=== PATIENT | male | born 1955 | race Caucasian/White ===

== ENCOUNTER 2017-10-23 19:00 | Inpatient (IN) | payer BC ==
[~2017-10-23] VITALS: Ht 180.3 cm; Wt 93.0 kg
--- NOTE | ~2017-10-23 | EKG ---
[place] [address] [facility] [email or web address] [address] ELECTROCARDIOGRAM REPORT Name: KEITH KENYON Room #: 422-P ADM IN M.R.#: [id number] Admission: 10/23/17 Attend Phys: Isaac Anaya MD Discharge: Date of : 55 Report #: [id number] THIS REPORT FOR: //name// [facility] ED Test Date: 2017-10-23 Test Time: 19:09:40 Pat Name: KEITH KENYON Department: Room: Gender: M Dance Entertainer: CATHERINEPETRA : 1955 Requested By: Carlitos Shah Order Number: [id number] MD: Mingo Tena Measurements Intervals [place] Rate: 73 P: 43 NM: 216 QRS: 25 QRSD: 88 T: -2 QT: 427 QTc: 471 Interpretive Statements Sinus rhythm Borderline prolonged NM interval Borderline T abnormalities, inferior leads Compared to ECG 01/22/2015 20:00:47 T-wave abnormality now present Electronically Signed On 10-24-2017 8:06:16 CDT by Mingo Tena [email or web address] <ELECTRONICALLY SIGNED> By: Mingo Tena MD, [facility] 10/24/17 0806 [id number] Mingo Tena MD, [facility] /EPI
--- NOTE | ~2017-10-23 | 2DMMODE ---
[facility] [address] [place] [address] 2 D/M-MODE ECHOCARDIOGRAM Name: KEITH KENYON Room #: 422-P ADM IN M.R.#: [id number] Admission: 10/23/17 Attend Phys: Isaac Anaya MD Discharge: Date of : 55 Date of Service: 10/24/17 1005 Report #: [id number] THIS REPORT FOR: //name// APPROVED REPORT Study performed: 10/24/2017 08:53:56 EXAM: Comprehensive 2D, Doppler, and color-flow Echocardiogram Patient Location: Echo lab Room #: 422 Status: routine BSA: 2.13 HR: 60 bpm BP: 138/68 mmHg Rhythm: NSR Other Information Study Quality: Good Indications CVA/TIA Hx: recent Afib, pacemaker, HTN. Echo Enhancing Agent Indication: Rule out Shunt Agent(s) / Amount(s) Used: Agitated Saline 6 cc 2D Dimensions RVDd: 46.59 mm LVEF(%): 63.29 (>50%) IVSd: 11.00 (7-11mm) LVOT Diam: 23.46 (18-24mm) LVDd: 40.98 mm PWd: 10.00 (7-11mm) Ascending Ao: 34.94 (22-36mm) LVDs: 27.08 (25-40mm) Aortic Root: 37.94 mm Starr's LVEF: 63.29 % Volumes Left Atrial Volume (Systole) Single Plane 4CH: 47.26 mL Single Plane 2CH: 65.29 mL LA ESV Index: 28.00 mL/m2 Aortic Valve AoV Peak Misael.: 1.45 m/s AO Peak Gr.: 8.36 mmHg LVOT Max P.26 mmHg LVOT Max V: 1.03 m/s [facility] [place] [address] 2 D/M-MODE ECHOCARDIOGRAM Name: KEITH KENYON Room #: 422-P [facility] IN .R.#: [id number] Admission: 10/23/17 Attend Phys: Isaac Anaya MD Discharge: Date of : 55 Date of Service: 10/24/17 1005 Report #: [id number] LICHA Vmax: 3.09 cm2 Mitral Valve E/A Ratio: 0.8 MV Decel. Time: 191.79 ms MV E Max Misael.: 0.57 m/s MV A Misael.: 0.68 m/s MV PHT: 55.62 ms IVRT: 96.89 ms Pulmonary Valve PV Peak Misael.: 1.35 m/s PV Peak Gr.: 7.30 mmHg Pulmonary Vein P Vein S: 0.58 m/s P Vein A: 0.31 m/s P Vein D: 0.41 m/s P Vein A Dur.: 129.2 msec P Vein S/D Ratio: 1.41 Tricuspid Valve TR Peak Misael.: 2.27 m/s RAP Estimate: 5.00 mmHg TR Peak Gr.: 20.60 mmHg PA Pressure: 26.00 mmHg Left Ventricle The left ventricle is normal size. There is normal LV segmental wall motion. There is normal left ventricular wall thickness. Left ventricular systolic function is normal. LVEF is 55-60%. Mild diastolic dysfunction is present (impaired relaxation pattern). Right Ventricle The right ventricle is normal size. The right ventricular systolic function is normal. Atria The left atrium size is normal. No shunting noted by contrast bubble injection. Right atrium is mildly dilated. Pacemaker lead is present in the right atrium. Aortic Valve The aortic valve is normal in structure. No aortic regurgitation is present. There is no aortic valvular stenosis. Mitral Valve The mitral valve is normal in structure. Trace mitral regurgitation. No evidence of mitral valve stenosis. [facility] [address] [place] [address] 2 D/M-MODE ECHOCARDIOGRAM Name: KEITH KENYON PAYTON Room #: 422-P [facility] IN .R.#: [id number] Admission: 10/23/17 Attend Phys: Isaac Anaya MD Discharge: Date of : 55 Date of Service: 10/24/17 1005 Report #: [id number] Tricuspid Valve The tricuspid valve is normal in structure. Mild tricuspid regurgitation. Estimated PAP is 25mmHg. Pulmonic Valve The pulmonary valve is normal in structure. Mild pulmonic regurgitation. Great Vessels The aortic root is normal in size. The ascending aorta is normal in size. IVC is normal in size and collapses >50% with inspiration. Pericardium There is no pericardial effusion. <Conclusion> Left ventricular systolic function is normal. There is normal LV segmental wall motion. LVEF is 55-60%. Mild diastolic dysfunction No shunting noted by contrast bubble injection. The aortic valve is normal in structure. No aortic regurgitation or stenosis The mitral valve is normal in structure. Trace mitral regurgitation. Mild tricuspid regurgitation. Estimated pulmonary artery pressure of 25mmHg. There is no pericardial effusion. Pacing wires in right heart <ELECTRONICALLY SIGNED> By: Mingo Tena MD, FACC 10/24/17 1005 1005 1005 Mingo Tena MD, FACC /INF
--- NOTE | ~2017-10-23 | EEG ---
[facility] [place] [address] [place] [address] ELECTROENCEPHALOGRAM Name: KEITH KENYON Room #: 422-P [facility] IN M.R.#: [id number] Admission: 10/23/17 Attend Phys: Isaac Anaya MD Discharge: 10/24/17 Date of : 55 Report #: [id number] THIS REPORT FOR: //name// CC: Jerardo Anaya DATE OF SERVICE: 10/24/2017 This patient is being evaluated for an episode of slurred speech. EEG was done by placing the electrode by standard 10-20 system of electrode placement. Both referential and sequential montages were used for recording. Background activity in this patient's EEG is about 11 Hz and 40 microvolt. It is a symmetrical activity. The patient became drowsy that is associated with bilateral slowing and vertex sharp waves. Photic stimulation is unremarkable. Throughout the record, no active epileptiform activity was noticed. IMPRESSION: This patient's EEG is within normal limit. Thank you very much for this referral. By: 0728 [id number] Moises Perez MD /nt
--- NOTE | ~2017-10-23 | HC ---
[facility] [place] [address] CONSULTATION Name: KEITH KENYON Room #: 422-P [facility] IN M.R.#: [id number] Admission: 10/23/17 Attend Phys: Isaac Anaya MD Discharge: 10/24/17 Date of : 55 Report #: [id number] THIS REPORT FOR: //name// CC: Jerardo Anaya DATE OF SERVICE: 10/24/2017 HISTORY OF PRESENT ILLNESS: This is a 62-year-old male patient who was evaluated by me for an episode of transient speech difficulty, which came spontaneously without any trauma. There was some metallic taste in his mouth. That is the history I got, but subsequently I talked to the hospitalist, Dr. Anaya and he indicated that the patient may have had some spells earlier. The patient and the subsequently provided a complicated history that he developed some anxiety after the pacemaker was put in and he was on Zoloft, but he tapered himself off. She also mentioned that this patient may have had some dehydration at one time. REVIEW OF SYSTEMS: Indicate that this patient had a pacemaker put in 2011. Initially, the said that the patient was staring, but when I took the further history, it looks like the patient was having more of a dizziness. They put a pacemaker and he has not had any spells since then. He was recently found to be in atrial fibrillation and has been started on Eliquis. He follows up with Dr. Deleon at [facility]. He is pretty health conscious and is very good with his diet and exercise as I understand from the patient's . His pacemaker was compatible with MRI and his MRI has already been done. There is some question of headache, but this patient is not having any headache at the moment. A 14-point review of systems was carried out and it is positive for some hypertension for which he received some medication. His blood pressure appeared to be running reasonably well here. I carried out rest of the 14-point review of system and that appear unremarkable. PAST MEDICAL HISTORY: Negative for well defined TIA or seizure. FAMILY HISTORY: Negative for any early age stroke. SOCIAL HISTORY: He is pretty health conscious and does not smoke and take care of his diet and exercise. PHYSICAL EXAMINATION: The patient's examinations indicate he is alert, responsive, able to follow simple command. His higher functions and cranial nerve examination is unremarkable. His strength, sensation, reflexes and tone is symmetrical. There is no meningeal sign. Cardiac examinations indicate a pacemaker. There is no respiratory difficulty or rhonchi. His blood pressure is 138/68, respirations 16, pulse is 61, and temperature is 97.4. [facility] [address] [place] [address] CONSULTATION Name: KEITH KENYON Room #: 422-P [facility] IN M.R.#: [id number] Admission: 10/23/17 Attend Phys: Isaac Anaya MD Discharge: 10/24/17 Date of : 55 Report #: [id number] LABORATORY DATA: His labs indicate a normal white count. Normal sodium. He had three testing, which was reviewed, which is his MRI, CT angio, and carotid Doppler, they are all unremarkable. IMPRESSION: It is possible this patient had a transient ischemic attack. That can be from his heart. Cardiology is already consulted and managing that. There is a small chance it can be seizures, but I will get an EEG done. I think if his episodes continue, then he will need further workup in that regard, but if his episodes stops with cardiology management, then I do not think he needs further workup neurologically. I discussed that aspect with the patient and he understands that. The patient and the family has multiple questions and I . I did tell them that I got the consult this morning and I came to see them, but they were gone for MRI and that is why the consult was done this evening. I spent more than 50 minutes of time taking care of this patient today and majority of that time was spent counseling the family, coordinating his care by talking to other health complex care nurse and reviewing his imaging studies. Thank you very much for this referral. By: 1716 Moises Perez MD /brenna
[~2017-10-23 19:00] MED LIST: APAP W/CODEINE1 TA2 PO; ATIVAN0.5 MG PO; FISH OIL 1,0001 EAC7 PO; KEFLEX250 MG PO; MULTIVITAMINS PO; VITAMIN D1000 UNI1 PO
[2017-10-23 19:07] VITALS: BP 134/76
[2017-10-23] MEDS ORDERED: ELIQUIS5 MG PO (19:47)
[2017-10-23] MEDS ORDERED: CARDIZEM CD240 MG PO (19:48)
[2017-10-23 20:02] LABS: ABSOLUTE NEUTROPHILS 2.6 thou/uL (1.4-8.2); BASOPHILS 1.3 % (0.0-2.0); EOSINOPHILS 1.1 % (0.0-3.0); HEMATOCRIT 42.1 % (42.0-52.0); HEMOGLOBIN 14.5 gm/dL (14.0-18.0); LYMPHOCYTES 35.9 % (24.0-44.0); MCH 29.8 pg (26.0-34.0); MCHC 34.4 g/dL (28.0-37.0); MCV 86.7 fL (80.0-100.0); MONOCYTES 8.7 % (1.0-8.0); PLATELET COUNT 172 thou/uL (150-400); RBC 4.85 mil/uL (4.50-6.00); RDW 12.8 % (10.5-14.5)
[2017-10-23 20:10] LABS: ANION GAP 7 mmol/L (7-16); BUN 21 mg/dL (7-18); CALCIUM 8.6 mg/dL (8.5-10.1); CHLORIDE 105 mmol/L (98-107); CO2 31 mmol/L (21-32); GLUCOSE 112 mg/dL (74-106); POTASSIUM 3.6 mmol/L (3.5-5.1); SODIUM 143 mmol/L (136-145)
[2017-10-23 20:19] LABS: MAGNESIUM 2.3 mg/dL (1.8-2.4); SGOT 27 U/L (15-37); SGPT 30 U/L (30-65); TOTAL BILIRUBIN 0.5 mg/dL (<0.1-1.0); TOTAL PROTEIN 6.7 g/dL (6.4-8.2); TROPONIN-I < 0.04 ng/mL (<0.06)
[2017-10-23 20:23] LABS: APTT 24.9 Seconds (24.5-32.8); PROTIME 9.9 Seconds (9.3-11.4)
[2017-10-23 20:30] LABS: URINE BILIRUBIN NEGATIVE (Negative); URINE BLOOD NEGATIVE (Negative); URINE CLARITY CLEAR; URINE COLOR YELLOW; URINE GLUCOSE-RANDOM* NEGATIVE (Negative); URINE KETONES NEGATIVE (Negative); URINE LEUKOCYTES-REFLEX NEGATIVE (Negative); URINE NITRITE-REFLEX NEGATIVE (Negative); URINE PROTEIN (DIPSTICK) NEGATIVE (Negative); URINE SPECIFIC GRAVITY 1.015 (1.005-1.035); URINE UROBILINOGEN 0.2 E.U./dl (0.2-1.0)
[2017-10-23 20:38] LABS: AMP/METHAMP Negative (Negative); BARBITURATES Negative (Negative); BENZODIAZEPINES Negative (Negative); COCAINE Negative (Negative); METHADONE Negative (Negative); OPIATES Negative (Negative); PCP Negative (Negative)
[2017-10-23 21:56] VITALS: BP 130/72
[2017-10-24 04:14] LABS: CHOLESTEROL 161 mg/dL (<200); HDL CHOLESTEROL 30 mg/dL (>40); LDL CHOLESTEROL 99 mg/dL (<100); TC:HDL 5.4 Ratio (Not establshd); TRIGLYCERIDE 162 mg/dL (<150); VLDL 32 mg/dL (<40)
[2017-10-24 04:15] LABS: SERUM ASSESSMENT Clear
[2017-10-24 04:35] VITALS: BP 123/75
[2017-10-24 07:20] VITALS: BP 138/68
[2017-10-24 11:55] LABS: FOLIC ACID 17.6 ng/mL (8.6-58.9)
[2017-10-24 16:27] VITALS: BP 122/82
[2017-10-24 16:28] VITALS: BP 138/68
[2017-10-24 16:32] VITALS: BP 138/68
[2017-10-25 00:06] LABS: LYME ANTIBODY SCREEN* <0.91 ISR (0.00-0.90)
== END 2017-10-24 19:08 | disposition home or self-care (01) | DRG 69 ==
LOC: ER 19:00 → 4E 21:00 → EROBS 21:00 → 4E 21:51
PROVIDERS: Emergency Medicine; Hospitalist; Nurse Practitioner Acute Care
PROC: 4B02XSZ Measurement of Cardiac Pacemaker, External Approach (ICD-10-PCS; principal; 2017-10-23)
DX: G45.9 Transient cerebral ischemic attack, unspecified (principal); I48.91 Unspecified atrial fibrillation; I10 Essential (primary) hypertension; Z79.01 Long term (current) use of anticoagulants; Z95.0 Presence of cardiac pacemaker; Z82.49 Family history of ischemic heart disease and other diseases of the circulatory system
CPT/HCPCS: 10183